=== PATIENT | female | born 1960 | race Caucasian/White ===

== ENCOUNTER 2017-08-30 09:52 | Emergency (ER) | payer BC ==
--- NOTE | 2017-08-30 11:47 | EDM.PDOC ---
ED HPI GENERAL MEDICAL PROBLEM - General Chief Complaint: Abdominal Pain Stated Complaint: POSSIBLE KIDNEY STONES Time Seen by Provider: 08/30/17 10:00 Source of Information: Reports: Patient, Family (Mother) History Limitations: Reports: No Limitations - History of Present Illness INITIAL COMMENTS - FREE TEXT/NARRATIVE: 56 y.o.w.f with ileostomy placement, 5 years ago, due to a necrotic bowel. S/P Total Hysterextomy, S/P appendectomy, H/O Kidney stones. Pt came to the ed due to severe cramping at her RLQ of her abd, radiating to her r flank. Pt denied trauma. Pt noticed blood in her urine today. She stated as well, usually, her food, pills are detected in her ileostomy bag after she eats, but not today. Pt was dx'd with colitis in the past. No N/V/D or any other acute medical issues at this time. BP 138/119 RR 18 Pulse ox 100% on RA Pulse 70 Temp 36.8 Onset Date: 08/30/17 Onset Time: 06:00 Duration: Day(s): Location: Reports: Abdomen Severity: Moderate Improves with: Reports: Rest Worsens with: Reports: Movement Context: Reports: Trauma (multiple abd. surgeries. Ileostomy) Associated Symptoms: Reports: Other (Dizzy) R upper abdominal region Pain Score (Numeric/FACES): 7 - Related Data Allergies Allergy/AdvReac Type Severity Reaction Status Date / Time No Known Allergies Allergy Verified 08/30/17 10:07 Home Meds: Home Meds Albuterol [IJD: Albuterol HFA] 2 puff .XX Q4H PRN 08/30/17 [History] Ciprofloxacin HCl [Cipro] 500 mg PO BID #20 tablet 08/30/17 [Rx] Estrogens, Conjugated [Premarin] 0.9 mg PO DAILY 08/30/17 [History] metroNIDAZOLE [Flagyl] 500 mg PO Q8H #30 tab 08/30/17 [Rx] Past Medical History Respiratory History: Reports: Asthma Gastrointestinal History: Reports: GERD Genitourinary History: Reports: Renal Calculus 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 History: Hematologic History: Reports: Anemia - Infectious Disease History Infectious Disease History: Reports: Chicken Pox - Past Surgical History Respiratory Surgical History: Reports: None GI Surgical History: Reports: Appendectomy, Colon, Colonoscopy, EGD, Other (See Below) Other GI Surgeries/Procedures: ileostomy, 'colon removed as had quit working' Female Surgical History: Reports: Hysterectomy, Salpingo-Oophorectomy Social & Family History - Family History Family Medical History: Noncontributory - Tobacco Use Smoking Status *Q: Former Smoker Years of Tobacco use: 1 Used Tobacco, but Quit: Yes Month/Year Tobacco Last Used: may - Caffeine Use Caffeine Use: Reports: Coffee, Soda - Recreational Drug Use Recreational Drug Use: No ED ROS GENERAL - Review of Systems Review Of Systems: See Below Constitutional: Reports: No Symptoms HEENT: Reports: No Symptoms Respiratory: Reports: No Symptoms Cardiovascular: Reports: No Symptoms Endocrine: Reports: No Symptoms GI/Abdominal: Reports: Abdominal Pain (lower abd. and r flank) : Reports: Hematuria Musculoskeletal: Reports: No Symptoms Skin: Reports: No Symptoms Neurological: Reports: No Symptoms Psychiatric: Reports: No Symptoms Hematologic/Lymphatic: Reports: No Symptoms Immunologic: Reports: No Symptoms ED EXAM, RENAL/ - Physical Exam Exam: See Below Exam Limited By: No Limitations General Appearance: Alert, WD/WN, Mild Distress Eye Exam: Bilateral Eye: Normal Inspection Ears: Normal External Exam Nose: Normal Inspection Throat/Mouth: Normal Lips, Normal Oropharynx, Normal Voice, No Airway Compromise , Other (dry mucosal mmebrane) Head: Atraumatic, Normocephalic Neck: Normal Inspection, Supple, Non-Tender, Full Range of Motion Respiratory/Chest: No Respiratory Distress, Lungs Clear, Normal Breath Sounds, Chest Non-Tender Cardiovascular: Normal Peripheral Pulses, Regular Rate, Rhythm, No Edema, No Gallop, No Rub GI/Abdominal: Normal Bowel Sounds, No Organomegaly, No Distention, Tender (lowe abd. and RLQ of abdomen) (Female) Exam: Deferred Rectal (Female) Exam: Deferred Back Exam: Normal Inspection, Full Range of Motion Extremities: Normal Inspection, Normal Range of Motion, Non-Tender, No Pedal Edema, Normal Capillary Refill Neurological: Alert, Oriented, CN II-XII Intact, Normal Cognition, Normal Gait, No Motor/Sensory Deficits Psychiatric: Normal Affect, Normal Mood Skin Exam: Warm, Dry, Intact, Normal Color, No Rash Lymphatic: No Adenopathy Course - Vital Signs Text/Narrative:: 56 y.o.w.f with ileostomy placement, 5 years ago, due to a necrotic bowel. S/P Total Hysterextomy, S/P appendectomy, H/O Kidney stones. Pt came to the ed due to severe cramping at her RLQ of her abd, radiating to her r flank. Pt denied trauma. Pt noticed blood in her urine today. She stated as well, usually, her food, pills are detected in her ileostomy bag after she eats, but not today. Pt was dx'd with colitis in the past. No N/V/D or any other acute medical issues at this time. BP 138/119 RR 18 Pulse ox 100% on RA Pulse 70 Temp 36.8 PE: 56 y.o.w.f with ileostomy came to the ed deu to RLQ abd pain, right flank pain and blood in her urine. Imaging: CT abd - /+ Contrast: Possible colitis, no K stones as per RAD Labs: CBC nl INR 1.01 Na 145 K 38 GFR 51 BUN 15 Cr 1.1 UA pos for Hematuria Impression: Colitis, Kike hematuria, Ileostomy in place, R flank pain Tx: Pt refused pain meds. Flagyl and cipro as prescription Reexam: Pt was was doing fine on D/C Plan: D/C with instructions Last Recorded V/S: Last Vital Signs Temp 36.6 C 08/30/17 10:00 Pulse 78 08/30/17 10:00 Resp 18 08/30/17 12:07 BP 126/69 08/30/17 12:07 Pulse Ox 99 08/30/17 12:07 - Orders/Labs/Meds Orders: Active Orders 24 hr Category Date Time Status UA W/MICROSCOPIC [URIN] Stat Lab 08/30/17 10:00 Ordered Sodium Chloride 0.9% [Saline Flush] Med 08/30/17 12:13 Active 10 ml FLUSH ASDIRECTED PRN Peripheral IV Insertion Adult [OM.PC] Routine Oth 08/30/17 12:13 Ordered Medication Orders Sodium Chloride (Saline Flush) 10 ml FLUSH ASDIRECTED PRN PRN Reason: Keep Vein Open Last Admin: 08/30/17 12:15 Dose: 10 ml Labs: Laboratory Tests 08/30/17 08/30/17 08/30/17 Range/Units 10:00 10:50 10:50 WBC 7.3 (4.5-12.0) X10-3/uL RBC 4.62 (3.23-5.20) x10(6)uL Hgb 13.9 (11.5-15.5) g/dL Hct 41.7 (30.0-51.3) % MCV 90.2 (80-96) fL MCH 30.0 (27.7-33.6) pg MCHC 33.3 (32.2-35.4) g/dL RDW 12.5 (11.5-15.5) % Plt Count 331 (125-369) X10(3)uL MPV 8.0 (7.4-10.4) fL Neut % (Auto) 72.3 (46-82) % Lymph % (Auto) 20.4 (13-37) % Gregg % (Auto) 6.1 (4-12) % Eos % (Auto) 0 L (1.0-5.0) % Baso % (Auto) 1 (0-2) % Neut # (Auto) 5.3 (1.6-8.3) # Lymph # (Auto) 1.5 (0.6-5.0) # Gregg # (Auto) 0.4 (0.0-1.3) # Eos # (Auto) 0.0 (0.0-0.8) # Baso # (Auto) 0.1 (0.0-0.2) # PT 10.6 (8.7-11.1) INR 1.05 (0.89-1.13) Sodium (135-145) mmol/L Potassium (3.5-5.3) mmol/L Chloride (100-110) mmol/L Carbon Dioxide (21-32) mmol/L BUN (7-18) mg/dL Creatinine (0.55-1.02) mg/dL Est Cr Clr Drug Dosing mL/min Estimated GFR (MDRD) (>60) BUN/Creatinine Ratio (9-20) Glucose (80-116) mg/dL Calcium (8.6-10.2) mg/dL Total Bilirubin (0.1-1.3) mg/dL Direct Bilirubin (0.10-0.20) mg/dL AST (5-25) IU/L ALT (12-36) U/L Alkaline Phosphatase (56-112) IU/L Total Protein (6.0-8.0) g/dL Albumin (3.5-5.2) g/dL Urine Color Yellow (YELLOW) Urine Appearance Cloudy (CLEAR) Urine pH 5.0 (5.0-6.5) Ur Specific [place] 1.025 (1.010-1.025) Urine Protein Negative (NEGATIVE) mg/dL Urine Glucose (UA) Normal (NEGATIVE) mg/dL Urine Ketones 15 H (NEGATIVE) mg/dL Urine Occult Blood Moderate H (NEGATIVE) Urine Nitrite Negative (NEGATIVE) Urine Bilirubin Negative (NEGATIVE) Urine Urobilinogen Normal (NEGATIVE) mg/dL Ur Leukocyte Esterase Negative (NEGATIVE) Urine RBC >100 H (0) Urine WBC 0-5 (0) Ur Squamous Epith Cells Occasional (NS,R,O) Amorphous Sediment Many Urine Bacteria Many H (NS) 08/30/17 08/30/17 Range/Units 10:50 10:50 WBC (4.5-12.0) X10-3/uL RBC (3.23-5.20) x10(6)uL Hgb (11.5-15.5) g/dL Hct (30.0-51.3) % MCV (80-96) fL MCH (27.7-33.6) pg MCHC (32.2-35.4) g/dL RDW (11.5-15.5) % Plt Count (125-369) X10(3)uL MPV (7.4-10.4) fL Neut % (Auto) (46-82) % Lymph % (Auto) (13-37) % [place]gg % (Auto) (4-12) % Eos % (Auto) (1.0-5.0) % Baso % (Auto) (0-2) % Neut # (Auto) (1.6-8.3) # Lymph # (Auto) (0.6-5.0) # Gregg # (Auto) (0.0-1.3) # Eos # (Auto) (0.0-0.8) # Baso # (Auto) (0.0-0.2) # PT (8.7-11.1) INR (0.89-1.13) Sodium 141 (135-145) mmol/L Potassium 3.9 (3.5-5.3) mmol/L Chloride 103 (100-110) mmol/L Carbon Dioxide 27 (21-32) mmol/L BUN 15 (7-18) mg/dL Creatinine 1.1 H (0.55-1.02) mg/dL Est Cr Clr Drug Dosing 46.11 mL/min Estimated GFR (MDRD) 51 L (>60) BUN/Creatinine Ratio 13.6 (9-20) Glucose 103 (80-116) mg/dL Calcium 9.6 (8.6-10.2) mg/dL Total Bilirubin 0.5 (0.1-1.3) mg/dL Direct Bilirubin 0.10 (0.10-0.20) mg/dL AST 18 (5-25) IU/L ALT 22 (12-36) U/L Alkaline Phosphatase 85 (56-112) IU/L Total Protein 8.2 H (6.0-8.0) g/dL Albumin 4.0 (3.5-5.2) g/dL Urine Color (YELLOW) Urine Appearance (CLEAR) Urine pH (5.0-6.5) Ur Specific [place] (1.010-1.025) Urine Protein (NEGATIVE) mg/dL Urine Glucose (UA) (NEGATIVE) mg/dL Urine Ketones (NEGATIVE) mg/dL Urine Occult Blood (NEGATIVE) Urine Nitrite (NEGATIVE) Urine Bilirubin (NEGATIVE) Urine Urobilinogen (NEGATIVE) mg/dL Ur Leukocyte Esterase (NEGATIVE) Urine RBC (0) Urine WBC (0) Ur Squamous Epith Cells (NS,R,O) Amorphous Sediment Urine Bacteria (NS) Meds: Medications Generic Name Dose Route Start Last Admin Trade Name Freq PRN Reason Stop Dose Admin Sodium Chloride 10 ml 08/30/17 12:13 08/30/17 12:15 Saline Flush FLUSH 10 ml ASDIRECTED PRN Administration Keep Vein Open Discontinued Medications Generic Name Dose Route Start Last Admin Trade Name Freq PRN Reason Stop Dose Admin Iopamidol 75 ml 08/30/17 12:06 08/30/17 12:19 Isovue-370 (76%) IV 08/30/17 12:07 75 ml ONETIME ONE Administration Departure - Departure Time of Disposition: 13:17 Disposition: Home, Self-Care 01 Condition: Good Clinical Impression: Colitis, Flank pain, Ileostomy in place Hematuria Qualifiers: Hematuria type: unspecified type Qualified Code(s): R31.9 - Hematuria, unspecified - Discharge Information Prescriptions: Ciprofloxacin HCl [Cipro] 500 mg PO BID #20 tablet metroNIDAZOLE [Flagyl] 500 mg PO Q8H #30 tab Instructions: Colitis, Hematuria, Adult Referrals: PCP,Not In Area [Primary Care Provider] - Forms: ED Department Discharge Additional Instructions: Please follow up with your PMD and urologist, please come back if your symptoms get worse acutely - My Orders Last 24 Hours: My Active Orders 08/30/17 10:00 UA W/MICROSCOPIC [URIN] Stat 08/30/17 12:13 Sodium Chloride 0.9% [Saline Flush] 10 ml FLUSH ASDIRECTED PRN Peripheral IV Insertion Adult [OM.PC] Routine - Assessment/Plan Last 24 Hours: My Active Orders 08/30/17 10:00 UA W/MICROSCOPIC [URIN] Stat 08/30/17 12:13 Sodium Chloride 0.9% [Saline Flush] 10 ml FLUSH ASDIRECTED PRN Peripheral IV Insertion Adult [OM.PC] Routine
[2017-08-30] MEDS ORDERED: Iopamidol 755 Mg/ML 75 ML Bottle IV ONE (12:06)
[2017-08-30] MEDS ORDERED: Sodium Chloride 0.9% 10 ML Syringe FLUSH PRN (12:13)
--- NOTE | 2017-08-30 12:29 | CT ---
INDICATION: Right lower quadrant abdominal pain, cramping with blood in urine. Total hysterectomy, pain since Monday. Ileostomy on the right lower quadrant. CT ABDOMEN AND PELVIS WITHOUT CONTRAST: Spiral 1.25-mm axial sections were obtained through the abdomen and pelvis with renal calculus protocol - no contrast - and with sagittal and coronal reconstructions. No comparisons were available at the time of dictation. The patient denies previous examinations. Total Exam DLP = 597.64 mGy-cm. The lower lung almaguer and pleural spaces visualized revealed some very minimal scarring in the middle lobe and lingula. No active infiltrate or effusion was seen. There is a gallbladder present with no definite calculi. The liver appeared normal. The heart is normal in size. The common bile duct did not appear to be enlarged. The kidneys appear normal with a few tiny calcifications suggested on the right, non-obstructive. The ureters appear normal in course and caliber. No obstructive uropathy suggested. No gross renal mass identified. Adrenal glands appeared normal. The spleen and pancreas appear normal. No retroperitoneal masses were identified. Ileostomy is noted in the right lower quadrant and at the pelvic rim and upper pelvis on the right. Slightly thickened wall of the ascending colon is noted with pericolonic fat stranding, raising question of either an infectious process or a process such as Crohn's disease or ulcerative colitis. Findings should be correlated clinically in that regard. No definite rectal abnormality was identified. There is some free fluid in the posterior lower pelvis, which could be related to findings in the right colic gutter. This could signal the possibility of peritonitis. The uterus is absent, compatible with history of its removal. Ovaries are not identified. The appendix is not visualized, raising question of appendectomy, which the patient claims has occurred. No evidence of a bowel obstruction or free air could be identified. IMPRESSION: 1. The possibility of colitis with pericolonic inflammatory process at the ascending colon should be considered. Colonoscopy may be warranted, depending upon clinical correlation. 2. Ileostomy noted with small herniation at the site of the ileostomy. 3. Very tiny calculi are noted in the right kidney. No obstructive uropathy identified bilaterally. 4. No gallstones were demonstrated - correlate clinically as to the need for gallbladder ultrasound. Report was called to Dr. Melton at approximately 1203 hours, 08/30/2017. [facility]
--- NOTE | 2017-08-30 13:52 | CT ---
INDICATION: Gross hematuria. CT ABDOMEN AND PELVIS WITH CONTRAST: Spiral 2.5-mm axial sections were obtained through the abdomen with 75 mL Isovue-370 at 2 mL per second, and through the abdomen and pelvis after a 7-minute delay. Images were also obtained after a 15 minute delay through the pelvis. Sagittal and coronal reconstructions were obtained. Total Exam DLP = 1152.71 mGy-cm. No gallstones were demonstrated. The liver was unremarkable. The adrenal glands and kidneys appeared normal, without evidence of mass lesions , calculi of any significant size, or obstructive uropathy. On CT urogram, the pyelocaliceal systems and visualized ureters, as well as the fairly well contrast-enhanced urinary bladder, appeared normal. Ureteral jet was noted on the right. No obstructive uropathy or definite filling defects could be identified in the kidneys, ureters, or collecting systems, or urinary bladder. The urinary bladder wall may be slightly thickened. No definite renal or urinary bladder mass was identified. The pancreas and spleen appeared unremarkable. No retroperitoneal mass was seen. Abnormal ascending colon is again suggested with thickened wall and pericolonic fat stranding, as well as minimal ascites in the pelvis, which may be related. Ileostomy is again noted in the right lower quadrant - upper pelvis. IMPRESSION: 1. No specific etiology for the patient's gross hematuria could be identified. 2. Findings suggest the possibility of colitis with adjacent peritonitis and possible secondary ascites in the pelvis involving the ascending colon and retrocolic gutter, as well as anterior to the colon in the colic gutter. 3. Ileostomy with small hernia associated in the right lower quadrant - upper pelvis. Report was called to Dr. Melton at 1309 hours, 08/30/2017. [facility]
== END 2017-08-30 13:35 | disposition home or self-care (01) ==
LOC: FB.ED 09:52
DX: K52.9 Noninfective gastroenteritis and colitis, unspecified (principal); R31.29 Other microscopic hematuria; Z93.2 Ileostomy status; Z87.891 Personal history of nicotine dependence
CPT/HCPCS: 36415; 74178; 80048; 80076; 81001; 85025; 85610; 99284; J7050; Q9967; 74176; 74177